=== PATIENT | female | born 1970 | race Caucasian/White ===

== ENCOUNTER 2020-05-02 17:27 | Inpatient (IN) | payer OTHER ==
[~2020-05-02] VITALS: Ht 162.6 cm; Wt 64.0 kg
[~2020-05-02 17:27] MED LIST changes: -ASPIRIN325 MG PO; -ATENOLOL50 MG PO; -DEPAKOTE ER250 MG PO; -DIVALPROEX SOD250 M1 PO; -EUTHYROX150 MCG PO; -GABAPENTIN100 MG PO; -VALSARTAN40 MG PO
[2020-05-02] MEDS ORDERED: SODIUM CHLORIDE 0.9% 1000ML 1,000 ML IV SCH (17:45)
[2020-05-02] MEDS ORDERED: CEFEPIME 1GM/NS 0.9% 50 ML 50 ML IV SCH (17:57)
--- NOTE | 2020-05-02 18:05 | Emergency Department Note ---
History of Present Illnes History of Present Illness Chief Complaint: General Medicine Complaints History of Present Illness This is a 50 year old female with a past medical history significant for recent abdominoplasty and breast surgery in [place] with a chronic wound presenting for concern for wound infection. She is a patient of Dr. Urbina in wound care clinic and was sent to the emergency department for infectious workup. Arrival Mode: Car Communication Equipment Repairer Required: No Onset (how long ago): day(s) Location: abdomen Quality: sharp Radiation: Reports flank Severity: moderate Onset quality: gradual Duration (how long): week(s) (1) Timing of current episode: constant Progression: worsening Chronicity: new Context: Reports recent surgery; Denies recent illness Relieving factors: none Exacerbating factors: none Associated symptoms: Reports denies other symptoms Treatments prior to arrival: none Past Medical/Family History Physician Review I have reviewed the patient's past medical and family history. Any updates have been documented here. Review of Systems Review of Systems Constitutional: Reports no symptoms EENTM: Reports no symptoms Cardiovascular: Reports no symptoms Respiratory: Reports no symptoms Gastrointestinal: Reports as per HPI, Reports abdominal pain Genitourinary: Reports no symptoms Musculoskeletal: Reports no symptoms Integumentary: Reports no symptoms Neurological: Reports no symptoms Psychological: Reports no symptoms Endocrine: Reports no symptoms Hematological/Lymphatic: Reports no symptoms Physical Exam Related Data Allergies: Uncoded Allergies: NSAIDS (Allergy, 04/06/14) Vital signs reviewed: Yes Physical Exam CONSTITUTIONAL Constitutional: Present well-developed, Present well-nourished HENT HENT: Present normocephalic, Present atraumatic, Present oropharynx clear/moist, Present nose normal HENT L/R: Present left ext ear normal, Present right ext ear normal EYES Eyes: Reports PERRL, Reports conjunctivae normal NECK Neck: Present ROM normal PULMONARY Pulmonary: Present effort normal, Present breath sounds normal CARDIOVASCULAR Cardiovascular: Present regular rhythm, Present heart sounds normal, Present capillary refill normal, Present normal rate GASTROINTESTINAL Abdominal: Present soft, Present bowel sounds normal, Present tender (Abd wrapped in bandages) GENITOURINARY Genitourinary: Present exam deferred SKIN Skin: Present warm, Present dry MUSCULOSKELETAL Musculoskeletal: Present ROM normal NEUROLOGICAL Neurological: Present alert, Present oriented x 3, Present no gross motor or sensory deficits PSYCHOLOGICAL Psychological: Present mood/affect normal, Present judgement normal Results Laboratory Lab results reviewed: Yes Imaging Imaging results reviewed: Yes Diagnostics Tests Diagnostic test(s) reviewed: Yes Assessment & Plan Medical Decision Making MDM 50-year-old female with the stated past medical history presents for admission for surgical site infection. Patient was discussed Dr. Capellan was accepted admission. Cefepime and vancomycin started. Re-examined after fluids given Reassessment Reassessment time: 18:04 Reassessment Well appearing, NAD Assessment & Plan Final Impression: (1) Surgical site infection Depart Disposition: ADMITTED Home Meds Reported Medications Dicyclomine Hcl (DICYCLOMINE HCL) 10 Mg Capsule, 10 MG PO PRN 04/09/14 Omeprazole (OMEPRAZOLE) 40 Mg Capsule.dr, 40 MG PO BID 04/09/14 Medications in the ED Sodium Chloride 1,000 ml @ 0 mls/hr Q0M IV ; Start 05/02/20 at 17:45; Stop 05/02/20 at 18:44 PATTI RICHEY MD May 02, 2020 18:05
--- OUTSIDE RECORDS SUMMARY | 2020-05-02 18:11 | XMS REPORT | Continuity of Care Document ---
Author Author [facility] Organization [facility] Address [address] [place] [address] Phone Unavailable Care Team Providers Care Oil Dispatcher Name Role Phone Abdias LR, Johnathon Tolentino PCP TAY HYATT Attphys Unavailable Jeremiah DENNIS, Jesse Ob[place] Attphys Charles MANRIQUEZ Attphys Unavailable Payers Payer Name Policy Type Policy Number Effective Date Expiration Date S [facility]CHOICE [id number] 2015-PresentHMO/ PPO [id number] 2015 00:00:00 Jonathan Lozano Problems Condition Name Condition Details Condition Category Status Onset Date Resolution Date Last Treatment Date Treating Clinician Comments Source Abdominal pain, right upper quadrant Abdominal pain, right u pper quadrant Disease Active 2016-10-05 00:00:00 Jonathan Lozano Gastroesophageal reflux disease Gastroesophageal reflux disease Dis ease Active 2016-03-02 00:00:00 Jonathan Lozano Diverticulosis of large intestine without hemorrhage D iverticulosis of large intestine without hemorrhage Disease Active 2016-03-02 00:00:00 Jonathan Lozano 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 Disease Active 2016-03-02 00:00:[address] Allergies, Adverse Reactions, Alerts Allergy Name Allergy Type Status Severity Reaction(s) Onset Date Inacti ve Date Treating Clinician Comments Source Nsaids (Non-Steroidal Anti-Inflammatory Drug) Propensi ty to adverse reactions to drug Active 2016-03-02 00:00:00 Duane Lozano Family History Family Member Diagnosis Comments Start Date Stop Date Source Natural brother No Known Problems Ho marlys Lozano Natural father COPD [facility] Maternal aunt No Known Problems Duane Lozano Maternal grandfather No Known Problems [facility] Maternal grandmother No Known Problems [facility] Maternal uncle No Known Problems [place] manriquez Christian Natural mother COPD [facility] Natural mother Dementia [facility] Paternal aunt No Known Problems [place] [facility] Paternal grandfather No Known Problems [facility] Paternal grandmother No Known Problems [facility] Paternal uncle No Known Problems Buck declan Christian Natural sister No Known Problems Buckclay manriquez Christian Family member Phillips's esophagus [place] Christian Family member Breast cancer [facility] Family member Celiac disease [facility] Family member Cirrhosis [facility] Family member Colon cancer [facility]ist Family member Colon polyps [facility] ethodist Family member Crohn's disease [place] Family member Cystic fibrosis [place] Family member Eating disorder [place] Family member Esophageal cancer [place] Family member GERD [facility] Family member BAG REPAIRER Cancer [facility] Family member Hemochromatosis [place] Family member Inflammatory bowel disease [facility] Family member Irritable bowel syndrome [facility] Family member Liver cancer [facility] ethodist Family member Liver disease [facility] Family member Pancreatic cancer [place] Family member Pancreatitis [facility] ethodist Family member Rectal cancer [facility] Family member Stomach cancer [facility] Family member Ulcerative colitis [place] manriquez Christian Social History Social Habit Start Date Stop Date Quantity Comments Source Sex Assigned At Buck Lozano Tobacco use and exposure 2016-10-05 00:00:00 2016-10-05 00:00:00 Jerrell matute used Jonathan Lozano Alcohol intake 2016-10-05 00:00:00 2016-10-05 00:00:00 Current non-drinker of alcohol (finding) Jonathan Lozano Smoking Status Start Date Stop Date Source Never smoker Jonathan van Medications Ordered Medication Name Filled Medication Name Start Date Stop Da te Current Medication? Ordering Clinician Indication Dosage Frequency Signature (SIG) Comments Components Source amitriptyline (ELAVIL) 25 MG tablet 2017-07-19 00:00:00 Yes TAKE ONE TABLET BY MOUTH NIGHTLY Jonathan van dicyclomine (BENTYL) 10 MG capsule 2017-03-18 00:00:00 Yes TAKE ONE CAPSULE BY MOUTH 4 TIMES DAILY BEFORE MEALS AND NIGHTLY Jonathan Lozano CREON 12,000-38,000 -60,000 unit capsule,delayed release(DR/ EC) capsule 2017-03-18 00:00:00 Yes TAKE ONE CAPSULE BY MOUTH THREE TIMES DAILY WITH MEALS Jonathan Lozano omeprazole (PriLOSEC) 40 MG capsule 2017-03-18 00:00:00 Yes TAKE ONE CAPSULE BY MOUTH ONCE DAILY Jonathan nieto omeprazole (PriLOSEC) 40 MG capsule 2016-10-05 14:25:17 Yes 40mg QD Take 40 mg by mouth daily. Jonathan Lozano dicyclomine (BENTYL) 10 MG capsule 2016-10-05 14:12:29 Yes 10mg Q.5D Take 10 mg by mouth 2 (two) times a day. Jonathan Lozano LACTOBACILLUS ACIDOPHILUS (PROBIOTIC ORAL) 2016-10-05 14:10:15 Yes Take by mouth. Jonathan Lozano BENEFIBER, GUAR GUM, ORAL 2016-10-05 14:10:15 Yes Take by mouth. Jonathan Lozano ergocalciferol (VITAMIN D2) 50,000 unit capsule 2016-10-05 14:10 :15 Yes [id number] Q7D Take 50,000 Units by mouth once a week. Jonathan Lozano levothyroxine (SYNTHROID, LEVOTHROID) 112 MCG tablet 2 00:00:00 Yes Jonathan van Procedures Procedure Date / Time Performed Performing Clinician Sourc e CT CARDIAC CALCIUM SCORE 2019-08-10 10:07:04 Tay Hyatt Plan of Care Planned Activity Planned Date Details Comments Source Future Scheduled Test 2020-01-20 00:00:00 INFLUENZA VACCINE [code = INFLUENZA VACCINE] Jonathan Lozano Future Scheduled Test 2019 00:00:00 BREAST CANCER SCRE ENING [code = BREAST CANCER SCREENING] Jonathan Lozano Future Scheduled Test 2019 00:00:00 COLONOSCOPY SCREEN ING [code = COLONOSCOPY SCREENING] Jonathan Lozano Future Scheduled Test 2019 00:00:00 SHINGLES VACCINES (#1) [code = SHINGLES VACCINES (#1)] Jonathan Lozano Future Scheduled Test 1990 00:00:00 Screening for rhonda gnant neoplasm of cervix (procedure) [code = 660914232] Jonathan van Encounters Start Date/Time End Date/Time Encounter Type Admission Type Attendi [facility] Care Department Encounter ID Source 2019-08-10 00:00:00 2019-08-10 00:00:00 Outpatient TAY HYATT [facility] [id number] [facility] Results Test Description Test Time Test Comments Results Result Comments Source CT ABDOMEN/PELVIS W 2019-07-14 10:50:00 [facility] [address] [address] Patient Name: ANTOINE ESCOBAR MR #: [id number] : 1970 Age/Sex: 49/F Req #: [id number] Adm Physician: Ordered by: REMEDIOS MANRIQUEZ NP Report #: [id number] Location: CT Room/Bed: Procedure: [id number] CT/CT ABDOMEN/PELVIS W Exam Date: 07/14/19 Exam Time: 0916 REPORT STATUS: Signed CT of the abdomen and pelvis, with contrast, 07/14/2019. History: Abdominal pain, nausea, hematuria. Comparison: None available. Technique: Multidetector CT scanning of the abdomen and pelvis was performed from the level of the lung bases to the inferior pubic rami after intravenous and oral administration of contrast. Coronal and sagittal multiplanar reformations were obtained. RADIATION DOSE: Total DLP: 407 mGy*cm Dose modulation, iterative reconstruction, and/or weight based adjustment of the mA/kV was utilized to reduce the radiation dose to as low as reasonably achievable. Discussion: LUNG BASES: There is bibasilar atelectasis. ABDOMEN: Cholecystectomy clips are present. The liver, biliary tree, spleen, pancreas, adrenal glands, and kidneys are normal. The hepatic vein, portal vein, and splenic vein are patent. The abdominal aorta is within normal limits for size. There are findings of gastric bypass. There is no bowel dilatation. The appendix is visualized and is normal. Multiple diverticuli are present within the distal descending and sigmoid colon without evidence of adjacent inflammation.. There is no evidence of adenopathy or free fluid. PELVIS: The bladder is unremarkable. The uterus and adnexa are absent. Calcified phleboliths are present on the left. There is no evidence of free fluid or adenopathy. BONES AND SOFT TISSUES: Degenerative changes are present throughout the lumbar spine without evidence of lytic or sclerotic lesion. There is grade 1 spinal listhesis of L4 on L5 without evidence of spondylolysis. A 2.1 x 2.5 cm subcutaneous cyst is present in the left anterior abdominal wall. IMPRESSION: 1. Findings of previous gastric bypass. No evidence of obstruction. 2. Colonic diverticula versus wit hout evidence of diverticulitis. 3. Left anterior abdominal wall subcutaneous cyst, benign. 4. Status post cholecystectomy and hysterectomy. Signed by: Garth Vu on 07/14/2019 10:57 AM Dictated By: GARTH VU MD 1057 Transcribed By: MANGO on 07/14/19 1057 COPY TO: REMEDIOS MANRIQUEZ GRAILS WEB APPLICATION DEVELOPER CHEST 2 VIEWS 2019-07-14 08:53:[address] [address] Patient Name: ANTOINE ESCOBAR MR #: [id number] : 1970 Age/Sex: 49/F Req #: [id number] Adm Physician: Ordered by: REMEDIOS MANRIQUEZ NP Report #: [id number] Location: CT Room/Bed: Procedure: [id number] DX/CHEST 2 VIEWS Exam Date: 07/14/19 Exam Time: 0730 REPORT STATUS: Signed Chest, 2 views, 07/14/2019. History: Cough and chest pain. Comparison: None available. Findings: The cardiomediastinal silhouette and pulmonary vasculature are within normal limits. There is no focal consolidation or pleural effusion. Linear opacities are present in the left upper lobe and right lower lobe. There are no acute osseous or soft tissue abnormalities. Impression: Bilateral linear scarring. Signed by: Garth Vu on 07/14/2019 8:54 AM Dictated By: GARTH VU MD 3 Transcribed By: MANGO on 07/14/19853 COPY TO: REMEDIOS MANRIQUEZ NP
--- OUTSIDE RECORDS SUMMARY | 2020-05-02 18:11 | XMS REPORT | Clinical Summary ---
Author Author [facility] Organization [facility] Address Unknown Phone Unavailable Care Team Providers Care Envelope Adjuster Name Role Phone AbdiasRanda Johnathon SOAKING ROOM OPERATOR PCP Allergies Comments Active Allergy Reactions Severity Noted Date Nsaids (Non-Steroidal 03/02/2016 Anti-Inflammatory Drug) Medications End Date Status Medication Sig Dispensed Refills Start Date Active levothyroxine (SYNTHROID, 0 LEVOTHROID) 112 MCG 6 tablet Active LACTOBACILLUS ACIDOPHILUS Take by 0 (PROBIOTIC ORAL) mouth. Active BENEFIBER, GUAR GUM, ORAL Take by 0 mouth. Active ergocalciferol (VITAMIN Take 50,000 0 D2) 50,000 unit capsule Units by mouth once a week. Active dicyclomine (BENTYL) 10 Take 10 mg by 0 MG capsule mouth 2 (two) times a day. Active omeprazole (PriLOSEC) 40 Take 40 mg by 0 MG capsule mouth daily. Active dicyclomine (BENTYL) 10 TAKE ONE 120 capsule 6 MG capsule CAPSULE BY 7 MOUTH 4 TIMES DAILY BEFORE MEALS AND NIGHTLY Active CREON 12,000-38,000 TAKE ONE 90 capsule 6 -60,000 unit CAPSULE BY 7 capsule,delayed MOUTH THREE release(DR/EC) capsule TIMES DAILY WITH MEALS Active omeprazole (PriLOSEC) 40 TAKE ONE 30 capsule 6 0 MG capsule CAPSULE BY 7 MOUTH ONCE DAILY Active amitriptyline (ELAVIL) 25 TAKE ONE 30 tablet 6 MG tablet TABLET BY 8 MOUTH NIGHTLY Active Problems Problem Noted Date Abdominal pain, right upper quadrant 10/05/2016 Gastroesophageal reflux disease 03/02/2016 Diverticulosis of large intestine without hemorrhage 03/02/2016 Alcoholism in remission 03/02/2016 Encounters Care Team Description Date Type Specialty Tay Matias MD Encounter for screening, unspecified (Pr imary Dx) 08/09/2019 Transcribe Access Orders Sabas Daniels MD Encounter for screening, unspecified (Pr imary Dx) 08/09/2019 Transcribe Access Orders after 05/02/2019 Surgical History Surgery Date Site/Laterality Comments BLADDER SUSPENSION 06/21/2014 - 06/20/2015 THYROID SURGERY 06/21/2013 - 06/20/2014 OTHER SURGICAL HISTORY gastric sleeve CHOLECYSTECTOMY HYSTERECTOMY TONSILLECTOMY BREAST CYST EXCISION BARIATRIC SURGERY 06/21/2009 - gastric sleeve 06/20/2010 COLONOSCOPY 04/21/2004 Colonic mucosa with no diagnostic alteration (r) - colon, Sigmoid colon: hyper plastic mucosal polyp 05/20/2004 COLONOSCOPY 2014 :Diverticulosis in the ascending colon :internal hemorrhoids COLONOSCOPY 09/23/2015 : Diverticulosis in sigmoid and descending colon., internal hemorrhoids. Random bx: Benign colonic mucosa, no pathologic alteration UPPER GASTROINTESTINAL 06/21/2003 - Nl duodenal muc mike, antral mucosa with foveolar ENDOSCOPY 06/20/2004 hyperplasia, nondia gnostic change. No H. pylori UPPER GASTROINTESTINAL 04/21/2005 Erosive gastrit is bx: reactive gastritis, no H. ENDOSCOPY - pylori. 05/20/2005 UPPER GASTROINTESTINAL 05/03/2014 Duodenum chroni c duodenitis,mild and ENDOSCOPY nonspecific:BRunners gland hyperplasia:Stomach antrum bx:reactive/chemical gastropathy :No Hpylori:stomach gastric polyp Bx Fundic gland polyp UPPER GASTROINTESTINAL 09/23/2015 : Small HH, gas tritis bx: mld chronic inactive ENDOSCOPY gastritis, mld reactive thad nges, HP Neg., normal examined duodenum bx: mld peptic duoden itis FOOT SURGERY Bilateral Club foot sx Medical History Medical History Date Comments Alcohol abuse, unspecified Abdominal pain, right upper quadrant Other nonspecific abnormal serum enzyme levels Acquired diverticulosis of colon Family History Medical History Relation Name Comments No Known Problems Brother COPD Father No Known Problems Maternal Aunt No Known Problems Maternal Grandfather No Known Problems Maternal Grandmother No Known Problems Maternal Uncle COPD Mother Dementia Mother No Known Problems Paternal Aunt No Known Problems Paternal Grandfather No Known Problems Paternal Grandmother No Known Problems Paternal Uncle No Known Problems Sister Phillips's esophagus Neg Hx Breast cancer Neg Hx Celiac disease Neg Hx Cirrhosis Neg Hx Colon cancer Neg Hx Colon polyps Neg Hx Crohn's disease Neg Hx Cystic fibrosis Neg Hx Eating disorder Neg Hx Esophageal cancer Neg Hx GERD Neg Hx CONSULTING MARINE ENGINEER Cancer Neg Hx Hemochromatosis Neg Hx Inflammatory bowel Neg Hx disease Irritable bowel syndrome Neg Hx Liver cancer Neg Hx Liver disease Neg Hx Pancreatic cancer Neg Hx Pancreatitis Neg Hx Rectal cancer Neg Hx Stomach cancer Neg Hx Ulcerative colitis Neg Hx Relation Name Status Comments Brother Father Maternal Aunt Maternal Grandfather Maternal Grandmother Maternal Uncle Mother Alive Paternal Aunt Paternal Grandfather Paternal Grandmother Paternal Uncle Sister Social History Date Tobacco Use Types Packs/Day Years Used Never Smoker Smokeless Tobacco: Never Used Drinks/Week oz/Week Comments Alcohol Use No Sex Assigned at Date Recorded Not on file Last Filed Vital Signs Not on file Plan of Treatment Health Maintenance Due Date Last Done Comments CERVICAL CANCER SCREENING 1990 BREAST CANCER SCREENING 2019 COLONOSCOPY SCREENING 2019 SHINGLES VACCINES (#1) 2019 INFLUENZA VACCINE 01/20/2020 Procedures Comments Procedure Name Priority Date/Time Associated Diag nosis CT CARDIAC CALCIUM SCORE Routine 08/10/2019 Encou nter for screening, 10:07 AM [facility] unspecified after 05/02/2019 Results * Ct cardiac calcium score (08/10/2019 10:07 AM [facility]) Specimen Narrative Performed At EXAMINATION: CT CARDIAC CALCIUM SCORE RADIANT CLINICAL HISTORY: Z13.9 Encounter for s creening unspecified, ecounter screening unspecified COMPARISON: None. TECHNIQUE: CT imaging was performed wit h iterative reconstruction technique and/or automated exposure control to re duce radiation dose. FINDINGS: Agatston total coronary artery calcium score: 0 Age Corrected Percentile: 0th Left main (LM): 0 Left anterior descending (LAD): 0 Left circumflex (LCX): 0 Right coronary artery (RCA): 0 Posterior descending artery (PDA): 0 Noncoronary findings: Visualized portio ns of the lungs, pleura, and pericardium are unremarkable. Agatston calcium score (total) extent o f atherosclerosis 0-normal 8-17-ahjiizf atherosclerosis 10-100-mild extent of atherosclerosis [id number] extent of atherosclero sis Greater than 400-severe extent of ather osclerosis Recommendation Normal coronary artery calcium score. C ontinue routine preventative measures. IMPRESSION: No coronary artery calcifications. [id number] Procedure Note Interface, Radiology Results Incoming - 08/10/2019 10:38 AM [facility]ANCH[facility] EXAMINATION: CT CARDIAC CALCIUM SCORE CLINICAL HISTORY: Z13.9 Encounter for screening unspecified, ecounter screening unspecified COMPARISON: None. TECHNIQUE: CT imaging was performed with iterative reconstruction technique and/or automated exposure control to reduce radiation dose. FINDINGS: Agatston total coronary artery calcium score: 0 Age Corrected Percentile: 0th Left main (LM): 0 Left anterior descending (LAD): 0 Left circumflex (LCX): 0 Right coronary artery (RCA): 0 Posterior descending artery (PDA): 0 Noncoronary findings: Visualized portions of the lungs, pleura, and pericardium are unremarkable. Agatston calcium score (total) extent of atherosclerosis 0-normal 7-35-dfyznzw atherosclerosis 10-100-mild extent of atherosclerosis [id number] extent of atheroscleros is Greater than 400-severe extent of atherosclerosis Recommendation Normal coronary artery calcium score. Continue routine preventative measures. IMPRESSION: No coronary artery calcifications. [id number] Performing Organization Address City/State/ZIP Code P aniya Number [facility] [address] [place] [address] after 05/02/2019 Insurance Type Payer Benefit Subscriber ID Effective Phone Address Plan / Dates Group HMO/PPO [facility] [id number] 2015-P THCARE resent CHOICE/CHO ICE + Advance Directives For more information, please contact: [phone] Patient Personal Assistant Explanation Type Date Recorded Advance Directives, 09/23/2015 10:04 AM Living Will and Medical Power of Jaw Skinner Advance Directives, 09/24/2015 1:22 PM Living Will and Medical Power of Jaw Skinner Advance Directives, 03/11/2016 8:20 AM Living Will and Medical Power of Jaw Skinner Advance Directives, 03/13/2016 9:39 AM Living Will and Medical Power of Jaw Skinner Advance Directives, 05/06/2016 6:43 AM Living Will and Medical Power of Jaw Skinner Advance Directives, 07/08/2016 9:54 AM Living Will and Medical Power of Jaw Skinner Advance Directives, 07/10/2016 11:47 AM Living Will and Medical Power of Jaw Skinner
[2020-05-02 18:17] LABS: BASOPHILS # (AUTO) 0.1 (0.0-0.1); BASOPHILS % 0.9 % (0.0-1.0); EOSINOPHILS # (AUTO) 0.2 (0.0-0.4); EOSINOPHILS % 2.8 % (0.0-6.0); HEMATOCRIT 34.4 % (34.2-44.1); HEMOGLOBIN 10.9 g/dL (12.0-16.0); LYMPHOCYTES # (AUTO) 1.7 (1.0-3.2); LYMPHOCYTES % 32.8 % (18.0-39.1); MEAN CORPUSCULAR HEMOGLOBIN 28.8 pg (28-32); MEAN CORPUSCULAR HGB CONC 31.7 g/dL (31-35); MONOCYTES # (AUTO) 0.5 (0.2-0.8); MONOCYTES % 8.7 % (4.4-11.3); NEUTROPHILS # (AUTO) 2.9 (2.1-6.9); NEUTROPHILS % 54.6 % (38.7-80.0); PLATELET COUNT 343 x10e3/uL (140-360); RED BLOOD COUNT 3.78 x10e6/uL (3.6-5.1); RED CELL DISTRIBUTION WIDTH 13.7 % (11.7-14.4)
--- OUTSIDE RECORDS SUMMARY | 2020-05-02 18:18 | XMS REPORT | Continuity of Care Document ---
Author Author [facility] Organization [facility] Address [address] [place] [address] Phone Unavailable Care Team Providers Care Manager Eligibility Name Role Phone Abdias LR, Johnathon Tolentino PCP TAY HYATT Attphys Unavailable Jeremiah DENNIS, Jesse Obregon Attphys Charles MANRIQUEZ Attphys Unavailable Payers Payer Name Policy Type Policy Number Effective Date Expiration Date S [facility]/CHOICE [id number] 2015-PresentHMO/ PPO [id number] 2015 00:00:00 Jonathan Lozano Problems Condition Name [...] Problems Ho marlys Lozano Natural father COPD [facility]odist Maternal aunt No Known Problems Duane Lozano Maternal grandfather No Known Problems [facility] Maternal grandmother No Known Problems [facility] Maternal uncle No Known Problems [place] [facility] Natural mother COPD [facility] Natural mother Dementia [facility] Paternal aunt No Known Problems [place] [facility] Paternal grandfather No Known Problems [facility] Paternal grandmother No Known Problems [facility] Paternal uncle No Known Problems [facility] Natural sister No Known Problems [place] [facility] Family member Phillips's esophagus [facility] [place] [facility] Family member Breast cancer [facility] Family member Celiac disease [facility] Family member Cirrhosis [facility] Family member Colon cancer [facility] member Colon polyps [facility] Family member Crohn's disease [place] [facility] Family member Cystic fibrosis [place] [facility] Family member Eating disorder [place] [facility] Family member Esophageal cancer [place] [facility] Family member GERD [facility] Family member DIRECTOR OF OUTREACH Cancer [facility] Family member Hemochromatosis [place] [facility] Family member Inflammatory bowel disease [facility] Family member Irritable bowel syndrome [facility] Family member Liver cancer [facility] Family member Liver disease [facility] Family member Pancreatic cancer [place] [facility] Family member Pancreatitis [facility] Family member Rectal cancer [facility] Family member Stomach cancer [facility] Family member Ulcerative colitis [place] [facility] Social History Social Habit Start Date Stop [...] 50,000 unit capsule 2016-10-05 14:10 :15 Yes [id number] Take 50,000 Units by mouth once [...] gnant neoplasm of cervix (procedure) [code = 592499912] Jonathan van Encounters Start Date/Time End Date/Time Encounter Type Admission Type [facility] Care Department Encounter ID Source 2019-08-10 00:00:00 2019-08-10 00:00:00 Outpatient TAY HYATT [facility] [id number] [facility] Results Test Description Test Time Test Comments Results Result Comments Source CT ABDOMEN/PELVIS W 2019-07-14 10:50:00 [facility] [address] [address] Patient Name: ANTOINE ESCOBAR MR #: [id number] : 1970 Age/Sex: 49/F Req #: [id number] Adm Physician: Ordered by: REMEDIOS MANRIQUEZ NP Report #: [id number] Location: CT Room/Bed: Procedure: [id number] CT/CT ABDOMEN/PELVIS W Exam Date: 07/14/19 Exam [...] on 07/14/19 1057 COPY TO: REMEDIOS MANRIQUEZ [employer] CHEST 2 VIEWS 2019-07-14 08:53:00 [address] [address] Patient Name: ANTOINE ESCOBAR MR #: [id number] : 1970 Age/Sex: 49/F Req #: [id number] Adm Physician: Ordered by: REMEDIOS MANRIQUEZ NP Report #: [id number] Location: CT Room/Bed: Procedure: [id number] DX/CHEST 2 VIEWS Exam Date: 07/14/19 Exam [...]
[2020-05-02] MEDS ORDERED: VANCOMYCIN 750MG/NS 150ML IVPB 150 ML IV SCH (18:30)
[2020-05-02 18:33] LABS: ALANINE AMINOTRANSFERASE 11 IU/L (0-55); ALBUMIN 3.6 g/dL (3.5-5.0); ALBUMIN/GLOBULIN RATIO 1.3 (0.8-2.0); ALKALINE PHOSPHATASE 62 IU/L (40-150); ANION GAP 14.4 mmol/L (8-16); BLOOD UREA NITROGEN 14 mg/dL (7-26); BUN/CREATININE RATIO 16 (6-25); CALCIUM 8.5 mg/dL (8.4-10.2); CARBON DIOXIDE 21 mmol/L (22-29); CHLORIDE 107 mmol/L (98-107); CREATININE, SERUM 0.87 mg/dL (0.57-1.11); EST GLOMERULAR FILTRATION RATE > 60 ML/MIN (60-); GLUCOSE 120 mg/dL (74-118); POTASSIUM 4.4 mmol/L (3.5-5.1); SODIUM 138 mmol/L (136-145)
[2020-05-02] MEDS ORDERED: SODIUM CHLORIDE 0.9% 50ML 50 ML ONE (18:54)
[2020-05-02] MEDS ORDERED: IOPAMIDOL 370 MG/ML 200 ML INFUS..BTL INJ ONE (18:54)
[2020-05-02] MEDS ORDERED: CEFEPIME 2 GM/NS 0.9% 100 ML 100 ML IV SCH (19:00)
[2020-05-02] MEDS ORDERED: VANCOMYCIN 1GM/NS 250 ML 250 ML IV SCH (19:00)
--- NOTE | 2020-05-02 19:15 | NUR ---
Nursing report called to [facility].
--- NOTE | 2020-05-02 19:59 | Diagnostic Imaging Report ---
EXAM: CT Abdomen and Pelvis WITH contrast INDICATION: Abdominal pain. Concern for infection following abdominoplasty. COMPARISON: 07/14/2019. TECHNIQUE: Abdomen and pelvis were scanned utilizing a multidetector helical scanner from the lung base to the pubic symphysis after administration of IV contrast. Coronal and sagittal reformations were obtained. Routine protocol was performed. Scan was performed when during portal venous phase. IV CONTRAST: 100 cc Isovue 370. ORAL CONTRAST: Water RADIATION DOSE: Total DLP: 426.46 mGy*cm Estimated effective dose: (DLP x 0.015 x size factor) mSv COMPLICATIONS: None FINDINGS: LINES and TUBES: None. LOWER THORAX: Bibasilar subsegmental atelectasis. 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 No focal hepatic lesions. No biliary ductal dilation. GALLBLADDER: There are cholecystectomy clips. SPLEEN: No splenomegaly. PANCREAS: No focal masses or ductal dilatation. ADRENALS: No adrenal nodules KIDNEYS/URETERS: Kidneys enhance symmetrically. No hydronephrosis. No cystic or solid mass lesions. No stones. GI TRACT: No abnormal distention, wall thickening, or evidence of bowel obstruction. Postoperative changes involving the stomach and proximal small bowel suggestive of bariatric surgery, likely gastric right breast with Cruz-en-Y again observed, not significantly changed. Appendix is normal. PELVIC ORGANS/BLADDER: The uterus is absent. LYMPH NODES: There are mildly enlarged bilateral inguinal lymph nodes likely reactive. VESSELS: There is mild atherosclerotic disease in the aorta and major arterial branches. PERITONEUM / RETROPERITONEUM: No free air or fluid. BONES: Grade 1 anterolisthesis of L4 in relation to L5, unchanged. SOFT TISSUES: Apparent skin ulceration and small volume subcutaneous gas in the lower right breast/right upper quadrant abdominal wall as seen on axial images 27 through 29 series 2. No drainable fluid collection. There is also postoperative changes involving the anterior abdominal wall with subcutaneous edema, morphologic changes to the anterior abdominal wall musculature, with repositioning rectus abdominous muscles which are edematous and protrude into the anterior abdominal cavity. There is diffuse subcutaneous fat stranding, with skin ulceration in the lower anterior abdominal wall as seen on image 83 series 2. There is fluid attenuation throughout the anterolateral abdominal wall (deep subcutaneous just superficial to fascia), left greater than The right measuring up to 1.1 cm in AP dimension on image 65. Previously described left upper abdomen fluid collections no longer visualized. IMPRESSION: 1. Postoperative changes involving the inferior bright breast and anterior abdominal wall may reflect cellulitis. There is subcutaneous fluid in the deep subcutaneous throughout the anterior abdominal wall, particularly on the left, however, no loculated fluid collections. Signed by: Dr. Andrae Mccracken M.D. on 05/02/2020 7:56 PM
[2020-05-02 20:24] VITALS: BP 94/58
--- NOTE | 2020-05-02 20:24 | NUR ---
Received patient from ER via wheelchair in stable condition, no s/s of distress at this time. Patient alert and oriented, educated on hospital policy and plan of care. Dressings noted to bilateral breasts and right lower abdomen, CDI. Bed locked and in lowest position, side rails upx3, alarm on, call light placed within reach. Patient instructed to call for assistance if needed, verbalized understanding. All safety measures in place.
[2020-05-02 20:45] LABS: BILIRUBIN,URINE NEGATIVE (NEGATIVE); CLARITY,URINE CLEAR (CLEAR); COLOR,URINE YELLOW (YELLOW); KETONES,URINE TRACE (NEGATIVE); LEUKOCYTE ESTERASE ,URINE NEGATIVE (NEGATIVE); NITRITE,URINE NEGATIVE (NEGATIVE); PROTEIN,URINE DIPSTICK NEGATIVE (NEGATIVE); URINE UROBILINOGEN 0.2 mg/dL (0.2 - 1)
[2020-05-02] MEDS: MORPHINE SULFATE INJ 4 MG/ML INJ 1ML IV PRN (20:50)
[2020-05-02] MEDS: SODIUM CHLORIDE 0.9% 1000ML 1,000 ML IV SCH (20:52)
[2020-05-02] MEDS: VANCOMYCIN 1GM/NS 250 ML 250 ML IV SCH (20:52)
[2020-05-02 20:56] LABS: BACTERIA,URINE RARE /HPF; EPITHELIAL CELLS,URINE FEW /LPF; RBC,URINE 0-5 /HPF (0-5)
[2020-05-02] MEDS ORDERED: EUTHYROX150 MCG PO (21:08)
[2020-05-02] MEDS ORDERED: VALSARTAN40 MG PO (21:08)
[2020-05-02] MEDS ORDERED: ATENOLOL50 MG PO (21:08)
[2020-05-02] MEDS ORDERED: DIVALPROEX SOD250 M1 PO (21:08)
[2020-05-02] MEDS ORDERED: GABAPENTIN100 MG PO (21:08)
[2020-05-02] MEDS ORDERED: ASPIRIN325 MG PO (21:08)
[2020-05-02] MEDS ORDERED: DEPAKOTE ER250 MG PO (21:09)
[2020-05-02 21:10] VITALS: BP 94/58
[2020-05-02] MEDS ORDERED: INFLUENZA VIRUS VAC SPLIT INJ 0.5 ML SYR IM SCH (21:11)
--- NOTE | 2020-05-02 21:17 | NUR ---
Consult called to Dr. Vidal's office.
[2020-05-02 21:24] VITALS: BP 94/58
[2020-05-02] MEDS ORDERED: DIVALPROEX SODIUM 250 MG TAB...DR PO SCH (22:00)
--- NOTE | 2020-05-02 22:04 | Consultation ---
DATE OF CONSULTATION: 05/02/2020 REQUESTING PHYSICIAN: Beckie Capellan MD Thank you for this consultation. HISTORY OF PRESENT ILLNESS: This is a 50-year-old female who was [facility], sent by her PCP. The patient had breast augmentation and abdominoplasty done in [place] on April 11, 2020, stayed in the hospital for about 3-4 days, followed by stay at a hotel. She received Bactrim and clindamycin. Noted further abdominal and breast wounds. The patient noted some dehiscence of the abdominal wound for the past 2 weeks and also some redness along the surgical sites and on the breast. Came to the [facility], noted that there was evidence of infection of the wounds and was sent over to the emergency room to be admitted. Wound cultures were performed. REVIEW OF SYSTEMS: HEENT: Denies any headaches, visual complaints, sinus congestion, earache, throat pain, neck pain. RESPIRATORY: No cough, shortness of breath. CARDIOVASCULAR: No chest pain or palpitations. GI: No nausea, vomiting, or diarrhea. : No urinary symptoms. PAST MEDICAL HISTORY: Essential hypertension. PAST SURGICAL HISTORY: As above. In addition, has had gastric bypass, cholecystectomy, hysterectomy, thyroidectomy, breast lift and abdominoplasty, which were recent surgeries. MEDICATIONS: Chronic medications are reviewed. FAMILY HISTORY: Noncontributory. SOCIAL HISTORY: No active alcohol, tobacco, or drug use. PHYSICAL EXAMINATION: VITAL SIGNS: Temperature 98.1, pulse 84, respiratory rate is 17, blood pressure 111/73. HEENT: Head is normocephalic, atraumatic. Extraocular movements are not assessed. NECK: Supple. BREAST: Evaluation of the breasts reveals surgical wounds with some dehiscence in the right mid breast. Also on the left breast, there is dehiscence in the lower part of the breast wound. On the abdominal wound, there is dehiscence on the right lateral aspect with some drainage. LABORATORY DATA: Revealed WBC count of 5.3, hemoglobin 10.9, platelets 343. BUN 14, creatinine 0.7. LFTs are normal. ASSESSMENT: This is a 50-year-old female who has an abdominoplasty and recent breast lift, which have now become infected with wound dehiscence, high risk for staphylococcal infection as well as gram-negative infection. RECOMMENDATIONS: Wound care orders have been submitted. Antibiotics will be vancomycin and Maxipime. Cultures have been obtained. We will adjust antibiotics accordingly depending on clinical course. We will determine course and duration of antibiotic treatment. Thank you, Dr. Capellan, for this consultation. We will follow the patient along with you. Tomer Franklin MD SR/MODL /[id number] cc: Beckie Capellan MD
[2020-05-03] VITALS (8 sets, daily range): BP systolic 99–115; BP diastolic 57–70
[2020-05-03] MEDS: MORPHINE SULFATE INJ 4 MG/ML INJ 1ML IV PRN ×5 (03:39→20:35)
[2020-05-03] MEDS: ONDANSETRON HCL INJ 2MG/ML 2ML 2 MG/ML VIAL IV PRN ×5 (03:44→20:35)
[2020-05-03 05:19] LABS: BASOPHILS % 0.6 % (0.0-1.0); EOSINOPHILS % 1.2 % (0.0-6.0); HEMATOCRIT 29.5 % (34.2-44.1); HEMOGLOBIN 9.3 g/dL (12.0-16.0); MEAN CORPUSCULAR HGB CONC 31.5 g/dL (31-35); MEAN CORPUSCULAR VOLUME 91.9 fL (81-99); MONOCYTES # (AUTO) 0.3 (0.2-0.8); NEUTROPHILS # (AUTO) 2.1 (2.1-6.9); NEUTROPHILS % 60.9 % (38.7-80.0); PLATELET COUNT 243 x10e3/uL (140-360); RED BLOOD COUNT 3.21 x10e6/uL (3.6-5.1); RED CELL DISTRIBUTION WIDTH 13.7 % (11.7-14.4)
[2020-05-03 05:41] LABS: ANION GAP 11.2 mmol/L (8-16); BLOOD UREA NITROGEN 8 mg/dL (7-26); BUN/CREATININE RATIO 13 (6-25); CALCIUM 7.7 mg/dL (8.4-10.2); CARBON DIOXIDE 23 mmol/L (22-29); CHLORIDE 108 mmol/L (98-107); CREATININE, SERUM 0.63 mg/dL (0.57-1.11); EST GLOMERULAR FILTRATION RATE > 60 ML/MIN (60-); GLUCOSE 91 mg/dL (74-118); POTASSIUM 4.2 mmol/L (3.5-5.1); SODIUM 138 mmol/L (136-145)
[2020-05-03] MEDS: SODIUM CHLORIDE 0.9% 1000ML 1,000 ML IV SCH ×4 (05:58→20:44)
[2020-05-03] MEDS: CEFEPIME 2 GM/NS 0.9% 100 ML 100 ML IV SCH ×2 (05:58→18:17)
[2020-05-03] MEDS ORDERED: LEVOTHYROXINE SODIUM 100 MCG TAB PO SCH (06:00)
--- NOTE | 2020-05-03 06:33 | NUR ---
Spoke to Dr. Vidal regarding consult. stated he will come by and evaluate patient today.
[2020-05-03] MEDS: VANCOMYCIN 1GM/NS 250 ML 250 ML IV SCH ×2 (07:54→20:43)
[2020-05-03] MEDS: ATENOLOL 50 MG TAB PO SCH ×2 (08:56→16:23)
[2020-05-03] MEDS ORDERED: VALSARTAN 80 MG TAB PO SCH (09:00)
[2020-05-03] MEDS: DIVALPROEX SODIUM 250 MG TAB...DR PO SCH (09:07)
--- NOTE | 2020-05-03 10:06 | Consultation ---
DATE OF CONSULTATION: In-Hospital Consultation The consultation is requested by Dr. Capellan. Consultation requested to Brendan Vidal MD, Plastic Surgery. CHIEF COMPLAINT: Postoperative surgical dehiscence/infection. HISTORY OF PRESENT ILLNESS: The patient is a 50-year-old female, who on April 11 was in [place], undergoing cosmetic plastic surgical procedures that included bilateral mastopexy and abdominoplasty. The patient returned to the [facility] and is unclear, but when her symptoms began, but she noticed some wound breakdown underneath both breasts and around the midline of the abdominoplasty incision. This progressed and she went to her primary care physician in [place], who recommended that the patient be seen at the [facility]. The patient was seen at the [facility] on May [address] Bentley, who recommended that the patient go to the ER and be admitted. The patient was admitted last night and now consultation regarding evaluation and optimal management of the patient's postsurgical wounds was requested. PAST MEDICAL HISTORY: As noted above. PAST SURGICAL HISTORY: As noted above. PHYSICAL EXAMINATION: VITAL SIGNS: The patient is afebrile. Vital signs are stable. BREASTS: On pertinent physical exam, the patient's breasts exhibit classic inverted T mastopexy-type incisions consistent with them being approximately 3 weeks in age. There is full-thickness dehiscence and soft tissue breakdown at the confluence of the vertical and horizontal inframammary areas of the incision. The areas of breakdown measure approximately 3 cm in diameter. There is no significant devitalized tissue. There is no purulent exudate and sutures within all the incisions were noted. There does not appear to be any widespread infection or cellulitis of the area. ABDOMEN: In the central aspect of the abdominoplasty incision, there is a 7 to 8 cm area of full-thickness soft tissue loss with exposed subcutaneous tissue. There is no purulence. There is no significant devitalized tissue noted. IMPRESSION: Post surgical wound dehiscence and breakdown. PLAN: These wounds do not appear to be significantly infected nor are they severely compromised with large load of devitalized tissue. I recommend daily cleansing with soap and water, topical Bactroban ointment, and a sterile dressing. The patient does not require any surgical intervention at this time, so please re-consult me as necessary. Thank you for this consult. MD LAI Priest/GARY /[id number]
--- NOTE | 2020-05-03 12:06 | Progress Note ---
DATE: 05/03/2020 SUBJECTIVE: The patient was seen and examined in the room. Still complains of pain lower abdominal area where the patient has surgical wound. OBJECTIVE: VITAL SIGNS: Afebrile. Vital signs are stable. HEENT: Normocephalic, atraumatic. LUNGS: Clear to auscultation. HEART: Sounds S1, S2. No murmur. No gallop. ABDOMEN: Soft. Surgical scar is noted in the lower abdomen with dehiscence of the abdominal wound especially on the right side. There is surrounding erythema surgical scars with induration, . LABORATORY DATA: Labs are reviewed. Cultures are pending. Blood cultures are pending. ASSESSMENT: Status post abdominoplasty postoperative infections. RECOMMENDATIONS: 1. Followup cultures. 2. Antibiotic treatment with vancomycin and Maxipime is ongoing, wound care through the wound care team. 3. We will continue to follow. Tomer Franklin MD SR/MODL /[id number]
[2020-05-03] MEDS: MUPIROCIN 2% OINT 22 GM TUBE TOP SCH (13:00)
--- NOTE | 2020-05-03 14:13 | NUR ---
shake splitter visited with the pt and pt expressed peace through words, she says she feels better and doing well, shake splitter offered prayer and blessings chaplain Kojo
--- NOTE | 2020-05-03 18:07 | History and Physical ---
PCP: Dr. Randa Sanford. WOUND CARE: Dr. Marichuy Bentley. CHIEF COMPLAINT: Infection post abdominoplasty and breast augmentation. HISTORY OF PRESENT ILLNESS: This is a 50-year-old female with past medical history of hypertension, seizure disorders, and hypothyroidism, presented to the ER with complaint of abdominal and breast augmentation infection, status post surgery. She reports went to [place] to have abdominoplasty and breast augmentation on April 11, 2020. She stayed there for a few days and came back. Five days ago, she noted that she was having discharge around her belly. So, she went to her PCP who started her on some Bactrim and clindamycin. She reported the wound was not improving, so was sent to [facility] for further evaluation. At the [facility]ound Center, cultures were obtained and was sent to the ER for further evaluation. She denies any fever, chills, nausea, vomiting, or pain. She reports she had indurated area around the right pelvis area and under her right breast. Dressing intact. PAST MEDICAL HISTORY: 1. Hypertension. 2. Seizure disorder. 3. Thyroid disorder. PAST SURGICAL HISTORY: 1. Gastric bypass in 2010. 2. Thyroidectomy. 3. Cholecystectomy. 4. Hysterectomy. 5. Bladder lift and hernia repair. 6. Abdominoplasty and breast augmentation. FAMILY MEDICAL HISTORY: She reports sister has diabetes and father has COPD and skin cancer and seizure also runs in the family. SOCIAL HISTORY: She denies any tobacco, alcohol, or illicit drug use. . ALLERGIES: NSAIDS. REVIEW OF SYSTEMS: Twelve systems reviewed and negative, except as reported in HPI. PHYSICAL EXAMINATION: VITAL SIGNS: Temperature 97.8, pulse is 81, respirations 20, blood pressure 101/66, pulse ox is 99% on room air. GENERAL: No acute distress. HEENT: Normocephalic and atraumatic. NECK: Supple. LUNGS: Clear to auscultation. CARDIOVASCULAR: Regular rate and rhythm. GI: Soft and nontender. NEUROLOGIC: Alert, awake, and oriented x3. MUSCULOSKELETAL: Moves all extremities. SKIN: Multiple wound infection around the pelvis and under bilateral breasts and belly button. Dressing intact. PSYCH: Calm. LABORATORY DATA: WBC 3.42, hemoglobin 9.3, hematocrit 29.5, and platelets 243. Sodium 138, potassium 4.2, CO2 of 23, BUN is 8, creatinine is 0.63, estimated GFR is greater than 60. Lactic acid 0.8, calcium 7.7, TSH is 0.064. UA is negative. COVID PCR is pending. IMAGING: CT abdomen and pelvis shows postoperative changes involving the inferior bright right breast and anterior abdominal wall, may reflect cellulitis. There is subcutaneous fluid in the deep subcutaneous throughout the anterior abdominal wall, particularly only on the left; however, no loculated fluid collection. IMPRESSION: 1. Postop abdominoplasty and breast augmentation infection. Blood and urine cultures were sent and started on cefepime and vancomycin per ID. Pain management as needed and wound care per surgical team, Dr. Vidal. 2. Hypertension. Currently, blood pressure is low. We will hold Diovan and continue atenolol if systolic blood pressure is greater than 120. 3. Seizure disorders. We will continue on Depakote and gabapentin. 4. Thyroid disorder. TSH level is 0.064. We will decrease Synthroid to 125 mcg daily. 5. Deep vein thrombosis prophylaxis, SCDs for now. Dictated by JESS Keyes Beckie Capellan MD MY/MODL /[id number]
[2020-05-03] MEDS ORDERED: DIPHENHYDRAMINE HCL 25 MG CAP PO PRN (18:30)
--- NOTE | 2020-05-03 19:00 | NUR ---
Resumed care of patient. Patient awake and resting in bed, no s/s of distress at this time. Bed locked and in lowest position, side rails upx2, alarm on, call light placed within reach. Patient instructed to call for assistance if needed, verbalized understanding. All safety measures in place.
[2020-05-03] MEDS: DIVALPROEX SODIUM 125 MG TABDR...ER PO SCH (20:43)
[2020-05-03] MEDS: GABAPENTIN 100 MG CAP PO SCH (20:44)
[2020-05-03] MEDS: PANTOPRAZOLE SOD 40 MG TABEC PO SCH (20:44)
[2020-05-04] VITALS (7 sets, daily range): BP systolic 91–127; BP diastolic 61–86
[2020-05-04] MEDS: CEFEPIME 2 GM/NS 0.9% 100 ML 100 ML IV SCH ×2 (05:30→18:41)
[2020-05-04] MEDS: LEVOTHYROXINE SODIUM 125 MCG TAB PO SCH (05:30)
[2020-05-04] MEDS: ONDANSETRON HCL INJ 2MG/ML 2ML 2 MG/ML VIAL IV PRN ×5 (05:45→22:39)
[2020-05-04] MEDS: MORPHINE SULFATE INJ 4 MG/ML INJ 1ML IV PRN ×5 (05:45→22:47)
[2020-05-04] MEDS ORDERED: LEVOTHYROXINE SODIUM 100 MCG TAB PO SCH (06:00)
--- NOTE | 2020-05-04 07:00 | NUR ---
ASSUMED CARE. PATIENT AAOX3. ACYANOTIC. RESTING IN BED. NO DISTRESS NOTED. CALL LIGHT IN REACH. SIDE RAILS UP X2. BED LOW AND LOCKED.
[2020-05-04] MEDS: ASPIRIN 325 MG TAB PO SCH (08:32)
[2020-05-04] MEDS: DIVALPROEX SODIUM 250 MG TAB...DR PO SCH (08:32)
[2020-05-04] MEDS: ATENOLOL 50 MG TAB PO SCH ×2 (08:32→16:25)
[2020-05-04] MEDS: MUPIROCIN 2% OINT 22 GM TUBE TOP SCH (09:00)
[2020-05-04] MEDS: VANCOMYCIN 1GM/NS 250 ML 250 ML IV SCH ×2 (09:00→20:30)
[2020-05-04] MEDS: SODIUM CHLORIDE 0.9% 1000ML 1,000 ML IV SCH ×2 (10:00→16:00)
--- NOTE | 2020-05-04 19:33 | Progress Note ---
DATE: 05/04/2020 CONSULTANTS: 1. Dr. Franklin, ID. 2. Dr. Vidal, Surgical team. SUBJECTIVE: The patient reports right breast and pelvic area pain, rating at 8/10, but otherwise left side is with improved swelling and pain. Dressings are intact. She denies any chest pain, nausea, vomiting, fever, or chills. PHYSICAL EXAMINATION: VITAL SIGNS: Temperature 98.2, pulse is 78, respirations 17, blood pressure 127/86, pulse ox is 98% on room air. GENERAL: No acute distress. HEENT: Normocephalic and atraumatic. NECK: Supple. LUNGS: Clear to auscultation. CARDIOVASCULAR: Regular rate and rhythm. GI: Soft and nontender. NEUROLOGIC: Alert, awake, and oriented x3. MUSCULOSKELETAL: Moves all extremities. SKIN: Bilateral breast, under breast infection, belly button and around the pelvic area. Dressing is intact. PSYCH: Calm. LABORATORY DATA: Urine and blood cultures are negative so far. No labs today. IMPRESSION: 1. Postop abdominoplasty and breast augmentation infection. Blood and urine cultures are negative so far. Wound culture was sent by her water pollution specialist, awaiting on results. We will continue on cefepime and vancomycin per ID. Pain management as needed and wound care daily per Dr. Vidal's instructions. 2. Hypertension, stable on atenolol. We will hold if systolic blood pressure is less than 120. 3. Seizure disorders. We will continue on Depakote and gabapentin. 4. Thyroid disorder. TSH level is 0.064. We will decrease Synthroid to 125 mcg daily and advised to follow up with her PCP for repeat blood work in 4 weeks. 5. Deep vein thrombosis prophylaxis. SCDs for now. PLAN: We will repeat labs in a.m. Further recommendations per ID. At this time, no surgical intervention is recommended per Surgical team. Dictated by JESS Keyes Beckie Capellan MD MY/MODL /[id number]
--- NOTE | 2020-05-04 19:45 | NUR ---
BEDSIDE SHIFT REPORT RECEIVED FROM DAY RN. PT IS ALERT AND ORIENTED X3. RESPIRATIONS ARE EVEN AND UNLABORED.DRESSING TO BREAST DRY AND INTACT. ABDOMINAL DRESSING DRY AND INTACT. REWRAPED WITH KERLIX SO DRESSING STAY ON. PT TOLERATING CARDIAC DIET WELL. PT VOIDING WITHOUT DIFFICULTLY IN BATHROOM.NS INFUSING AT 125 ML/HR VIA RT AC- SITE HEALTHY. CALL LIGHT WITHIN REACH. BED LOCKED AND IN LOW POSITION.NO VANCO TROCH DONE. LAB ORDERED PER PROTOCOL FOR AM.
[2020-05-04] MEDS: GABAPENTIN 100 MG CAP PO SCH (21:53)
[2020-05-04] MEDS: PANTOPRAZOLE SOD 40 MG TABEC PO SCH (21:54)
[2020-05-04] MEDS: DIVALPROEX SODIUM 125 MG TABDR...ER PO SCH (21:56)
[2020-05-05] VITALS (8 sets, daily range): BP systolic 101–129; BP diastolic 68–81
[2020-05-05] MEDS ORDERED: SODIUM CHLORIDE 0.9% 250ML 250 ML ONE (02:24)
[2020-05-05] MEDS: ONDANSETRON HCL INJ 2MG/ML 2ML 2 MG/ML VIAL IV PRN ×5 (03:35→22:22)
[2020-05-05] MEDS: MORPHINE SULFATE INJ 4 MG/ML INJ 1ML IV PRN ×5 (03:42→22:23)
[2020-05-05] MEDS: ACETAMINOPHEN 325 MG TAB PO PRN ×2 (04:47→15:20)
[2020-05-05] MEDS: CEFEPIME 2 GM/NS 0.9% 100 ML 100 ML IV SCH ×2 (05:50→17:42)
[2020-05-05] MEDS: LEVOTHYROXINE SODIUM 125 MCG TAB PO SCH (05:50)
--- NOTE | 2020-05-05 06:24 | NUR ---
DRESSING REINFORCED WITH ABD PADS. INCISION ON ABD REDENED. NO DRAINAGE NOTED. PT VOIDING PER BATHROO.M.20 G SL PATENT WITH HEALTHY SITE.WILL ASK IF PT ABLE TO WEAR ABD BINDER.
--- NOTE | 2020-05-05 07:00 | NUR ---
ASSUMED CARE. PATIENT RESTING IN BED. AAOX3. ACYANOTIC. NO DISTRESS NOTED. CALL LIGHT IN REACH. SIDE RAILS UP X2. BED LOW AND SHIRLENE.D
[2020-05-05 07:03] LABS: BASOPHILS % 1.2 % (0.0-1.0); EOSINOPHILS # (AUTO) 0.2 (0.0-0.4); EOSINOPHILS % 6.1 % (0.0-6.0); HEMATOCRIT 28.1 % (34.2-44.1); HEMOGLOBIN 8.6 g/dL (12.0-16.0); LYMPHOCYTES # (AUTO) 1.1 (1.0-3.2); LYMPHOCYTES % 30.6 % (18.0-39.1); MEAN CORPUSCULAR HEMOGLOBIN 28.4 pg (28-32); MEAN CORPUSCULAR HGB CONC 30.6 g/dL (31-35); MEAN CORPUSCULAR VOLUME 92.7 fL (81-99); MONOCYTES # (AUTO) 0.4 (0.2-0.8); NEUTROPHILS # (AUTO) 1.8 (2.1-6.9); NEUTROPHILS % 50.8 % (38.7-80.0); PLATELET COUNT 208 x10e3/uL (140-360); RED BLOOD COUNT 3.03 x10e6/uL (3.6-5.1); RED CELL DISTRIBUTION WIDTH 13.6 % (11.7-14.4)
[2020-05-05 07:22] LABS: ANION GAP 10.2 mmol/L (8-16); BLOOD UREA NITROGEN < 5 mg/dL (7-26); CALCIUM 7.7 mg/dL (8.4-10.2); CARBON DIOXIDE 27 mmol/L (22-29); CHLORIDE 108 mmol/L (98-107); EST GLOMERULAR FILTRATION RATE > 60 ML/MIN (60-); GLUCOSE 95 mg/dL (74-118); POTASSIUM 4.2 mmol/L (3.5-5.1); SODIUM 141 mmol/L (136-145)
[2020-05-05 07:23] LABS: BUN/CREATININE RATIO 8 (6-25)
[2020-05-05] MEDS: ASPIRIN 325 MG TAB PO SCH (08:02)
[2020-05-05] MEDS: DIVALPROEX SODIUM 250 MG TAB...DR PO SCH (08:02)
[2020-05-05] MEDS: VANCOMYCIN 1GM/NS 250 ML 250 ML IV SCH ×2 (08:02→20:58)
[2020-05-05] MEDS: ATENOLOL 50 MG TAB PO SCH ×2 (08:03→17:43)
[2020-05-05] MEDS: MUPIROCIN 2% OINT 22 GM TUBE TOP SCH (10:00)
--- NOTE | 2020-05-05 19:55 | NUR ---
BEDSIDE SHIFT REPORT RECEIVED FROM DAY RN. PT IS ALERT AND ORIENTED X3. RESPIRATIONS ARE REGULAR AND UNLABORED. BREAST INCISION AND ABDOMINAL INCISION REDDENED. NO DRAINAGE NOTED. WOUND CULTURE PENDING FROM ADMISSION.PT VOIDING WITHOUT DIFFICULTY IN BATHROOM. SL IN RT AC SLIGHT SWOLLEN. WILL RESTART IV. CALL LIGHT WITHIN REACH. bED LOCKED ND IN LOW POSITION.
--- NOTE | 2020-05-05 21:57 | NUR ---
IV D/C WITH CATHETER INTACT. PRESSURE DRESSING TO AREA. NEW IV 22 G STARTED IN RT AC. SITE HEALTHY AND PATENT. PT TOLERATED PROCEDURE WELL.
--- NOTE | 2020-05-05 22:13 | Progress Note ---
DATE: 05/05/2020 AGE: A 50-year-old female. CONSULTANTS: 1. Dr. Franklin, ID. 2. Dr. Vidal, Surgical team. SUBJECTIVE: The patient reports improving swelling and pain. Dressings are intact. She remains afebrile. No chest pain, nausea, or vomiting. PHYSICAL EXAMINATION: VITAL SIGNS: Temperature 98.2, pulse is 74, respirations 18, blood pressure 127/78, pulse ox is 100% on room air. GENERAL: No acute distress. HEENT: Normocephalic, atraumatic. NECK: Supple. LUNGS: Clear to auscultation. CARDIOVASCULAR: Regular rate and rhythm. GI: Soft and nontender. NEUROLOGIC: Alert, awake, and oriented x3. MUSCULOSKELETAL: Moves all extremities. SKIN: Multiple postop surgical site infections. Dressing is intact. PSYCH: Calm. LABORATORY DATA: WBC 3.46, hemoglobin 8.6, hematocrit 28.1. Sodium 141, potassium 4.2, BUN less than 5, creatinine 0.60. Estimated GFR is greater than 60. Calcium is 7.7. TSH is 0.064. Vanc trough is 11.6. Blood and urine cultures negative. IMPRESSION AND PLAN: 1. Postop abdominoplasty and breast augmentation site infection. Blood and urine cultures are negative so far. Wound culture is pending per wound care doctor. We will continue with cefepime and vancomycin per ID. Pain management and wound care daily. Dr. Vidal has been consulted. No surgical intervention at this time. 2. Hypertension. Continue atenolol. 3. Seizure disorders. Continue with Depakote and gabapentin. 4. Hypothyroidism. TSH is 0.064. Synthroid decreased to 125 mcg daily and advised to follow up with PCP in 4 weeks for repeat blood work. 5. Deep vein thrombosis prophylaxis. SCDs. Plan is to continue IV antibiotics and wound care. We will await on wound culture results to decide on antibiotics. Dictated by JESS Keyes Beckie Capellan MD MY/MODL /[id number]
[2020-05-05] MEDS: GABAPENTIN 100 MG CAP PO SCH (22:18)
[2020-05-05] MEDS: PANTOPRAZOLE SOD 40 MG TABEC PO SCH (22:18)
[2020-05-05] MEDS ORDERED: DIVALPROEX SODIUM 125 MG TABDR...ER PO ONE (23:13)
[2020-05-05] MEDS ORDERED: DIVALPROEX SODIUM 250 MG TAB...DR PO ONE (23:14)
[2020-05-05] MEDS: DIVALPROEX SODIUM 125 MG TABDR...ER PO SCH (23:16)
[2020-05-06 00:34] VITALS: BP 108/77
[2020-05-06] MEDS: ACETAMINOPHEN 325 MG TAB PO PRN (04:37)
[2020-05-06 05:06] VITALS: BP 121/85
[2020-05-06] MEDS: CEFEPIME 2 GM/NS 0.9% 100 ML 100 ML IV SCH ×2 (06:09→16:54)
[2020-05-06] MEDS: LEVOTHYROXINE SODIUM 125 MCG TAB PO SCH (06:09)
[2020-05-06] MEDS: ONDANSETRON HCL INJ 2MG/ML 2ML 2 MG/ML VIAL IV PRN ×3 (06:38→16:30)
[2020-05-06] MEDS: MORPHINE SULFATE INJ 4 MG/ML INJ 1ML IV PRN ×3 (06:48→16:40)
[2020-05-06 08:11] VITALS: BP 128/87
[2020-05-06] MEDS: ATENOLOL 50 MG TAB PO SCH ×2 (09:35→16:54)
[2020-05-06] MEDS: DIVALPROEX SODIUM 250 MG TAB...DR PO SCH (09:35)
[2020-05-06] MEDS: MUPIROCIN 2% OINT 22 GM TUBE TOP SCH (09:35)
[2020-05-06] MEDS: VANCOMYCIN 1GM/NS 250 ML 250 ML IV SCH (09:35)
[2020-05-06] MEDS: ASPIRIN 325 MG TAB PO SCH (09:35)
[2020-05-06 12:13] VITALS: BP 125/89
[2020-05-06 16:27] VITALS: BP 125/85
[2020-05-06] MEDS ORDERED: DOXYCYCLINE HY100 MG PO (16:39)
[2020-05-06] MEDS ORDERED: CIPRO500 MG PO (16:39)
--- NOTE | 2020-05-06 17:43 | Progress Note ---
DATE: 05/06/2020 SUBJECTIVE: Clinically, the patient has been doing better. Abdominal wound erythema has improved. There is minimal discharge. OBJECTIVE: VITAL SIGNS: Temperature 97.6, pulse 68, respiratory rate 18, and blood pressure 125/89. HEENT: Normocephalic and atraumatic. Extraocular movements not assessed. NECK: Supple. LUNGS: Fair entry bilaterally. Clear to auscultation. HEART: Sounds S1 and S2. No murmur or gallop. ABDOMEN: Soft, nontender, and normoactive bowel sounds. SKIN: Evaluation of this skin reveals surgical wound sites over the breast with lesser erythema. No discharge. Abdominal plasty site shows no active discharge. LABORATORY DATA: WBC count 3.4, hemoglobin 8.6, and platelets 208. BUN of 5 and creatinine 0.6. Cultures are wound cultures that were done are all negative. ASSESSMENT: Status post abdominoplasty with surgical wound infection. Bilateral breast surgery with wound infection. RECOMMENDATIONS: The patient was placed on antibiotic regimen of vancomycin and Maxipime. Has had some improvement in the appearance of the wounds. We will tire changer aircraft antibiotic treatment to doxycycline and ciprofloxacin with followup at [facility] in the next 3-4 days. Wound care is ongoing. Tomer Franklin MD SR/GARY /[id number]
[2020-05-06] MEDS ORDERED: MORPHINE SULFATE INJ 4 MG/ML INJ 1ML IV PRN (19:30)
--- NOTE | 2020-05-06 19:30 | NUR ---
Patient transported to private vehicle. Patient AAOx4. Denies any pain or discomfort at this time. All belongings sent with patient.
--- NOTE | 2020-05-08 01:01 | Discharge Summary ---
PCP: Dr. Randa Sanford. FINAL DISCHARGE DIAGNOSES: 1. Postop abdominoplasty and breast augmentation site infection. 2. Hypertension. 3. Seizure disorder. 4. Hypothyroidism. CONSULTANTS: 1. Dr. Franklin, infectious Disease. 2. Dr. Vidal, surgical seen. PROCEDURES: None. HISTORY: Per HPI. HOSPITAL COURSE: This is a 50-year-old female, who presented with postop abdominoplasty and breast augmentation site of infection. Wound culture was taken at the [facility] and was started on IV antibiotics. Infectious Disease and surgeon consulted and evaluated the patient. Blood cultures were negative. Urine cultures were also negative. CT abdomen and pelvis showed postoperative changes involving the inferior right breast and anterior abdominal wall, may reflect cellulitis. There is subcutaneous fluid in the deep subcutaneous throughout the anterior abdominal wall, particularly on the left, however, no loculated fluid collection was noted. She was continued on vancomycin and cefepime and monitored. Dressing changed daily per Surgical team recommendations. Since there is no loculated fluid, no surgical intervention recommended at this time. She remained afebrile, swelling and pain improved. Wound culture was negative, so ID recommends discharge on Cipro and doxycycline and follow up in 3 to 4 days at the [facility] for wound care. PHYSICAL EXAMINATION: VITAL SIGNS: Temperature 97.5, pulse is 80, respirations 18, blood pressure 125/85, pulse ox is 95% on room air. GENERAL: No acute distress. HEENT: Normocephalic and atraumatic. NECK: Supple. LUNGS: Clear to auscultation. CARDIOVASCULAR: Regular rate and rhythm. GI: Soft and nontender. NEUROLOGIC: Alert, awake, and oriented x3. MUSCULOSKELETAL: Moves all extremities. SKIN: With multiple open post surgical sites, dressing intact. PSYCH: Calm. CONDITION AT DISCHARGE: Improved and stable. DISCHARGE MEDICATIONS: Resume home medications and Cipro and doxycycline antibiotics given as well as Tylenol No. 3 called in for pain. FOLLOWUP: Follow up with PCP and Wound Care in 3 to 4 days. The patient advised to follow up with PCP regarding TSH value and will have repeat blood work. TIME SPENT: Total discharge time is 32 minutes. Dictated by JESS Keyes MD ITZEL Obregon/GARY Chowdhury: 05/07/2020 21:08:12 /[id number] cc: Randa Sanford MD
== END 2020-05-06 20:31 | disposition home or self-care (01) | DRG 920 ==
LOC: ER 18:08 → ERHOLD 18:15 → MED/SURG 20:27
PROVIDERS: ADMIT Internal Medicine; ATTEND Internal Medicine
DX: T81.32XA Disruption of internal operation (surgical) wound, not elsewhere classified, initial encounter (principal); T81.43XA Infection following a procedure, organ and space surgical site, initial encounter; Z20.828 Contact with and (suspected) exposure to other viral communicable diseases; E03.9 Hypothyroidism, unspecified; G40.909 Epilepsy, unspecified, not intractable, without status epilepticus; I10 Essential (primary) hypertension; Z98.84 Bariatric surgery status
CPT/HCPCS: 36415; 74177; 80048; 80053; 80202; 81001; 83605; 84443; 85025; 87040; 87086; 99284; J0692; J2270; J2405; J3370; J7030; J7050; Q9967; U0002

== ENCOUNTER → 2020-05-02 | Outpatient (CLI) | payer OTHER ==
[~2020-05-02] MED LIST: ASPIRIN325 MG PO; ATENOLOL50 MG PO; DEPAKOTE ER250 MG PO; DICYCLOMINE HCL10 MG PO; DIVALPROEX SOD250 M1 PO; EUTHYROX150 MCG PO; GABAPENTIN100 MG PO; OMEPRAZOLE40 MG PO; VALSARTAN40 MG PO
== END ==
LOC: WCC 16:34
PROVIDERS: ATTEND Family Medicine Adult Medicine
DX: T81.89XA Other complications of procedures, not elsewhere classified, initial encounter (principal); T81.42XA Infection following a procedure, deep incisional surgical site, initial encounter; T81.32XA Disruption of internal operation (surgical) wound, not elsewhere classified, initial encounter; Y83.8 Other surgical procedures as the cause of abnormal reaction of the patient, or of later complication, without mention of misadventure at the time of the procedure; L03.311 Cellulitis of abdominal wall; I10 Essential (primary) hypertension
CPT/HCPCS: 87071; 87075; 87205

== ENCOUNTER → 2020-05-09 | Outpatient (CLI) | payer OTHER ==
[~2020-05-09] MED LIST changes: +ASPIRIN325 MG PO; +ATENOLOL50 MG PO; +CIPRO500 MG PO; +DEPAKOTE ER250 MG PO; +DIVALPROEX SOD250 M1 PO; +DOXYCYCLINE HY100 MG PO; +EUTHYROX150 MCG PO; +GABAPENTIN100 MG PO; +VALSARTAN40 MG PO
== END ==
LOC: WCC 14:54
PROVIDERS: ATTEND Family Medicine Adult Medicine
DX: T81.32XA Disruption of internal operation (surgical) wound, not elsewhere classified, initial encounter (principal); T81.42XA Infection following a procedure, deep incisional surgical site, initial encounter; T81.89XA Other complications of procedures, not elsewhere classified, initial encounter; Y83.8 Other surgical procedures as the cause of abnormal reaction of the patient, or of later complication, without mention of misadventure at the time of the procedure; L03.311 Cellulitis of abdominal wall; I10 Essential (primary) hypertension; E03.8 Other specified hypothyroidism

== ENCOUNTER → 2020-05-20 | Outpatient (CLI) | payer OTHER ==
[~2020-05-20] MED LIST changes: +MUPIROCIN 2% OINT 22 GM TUBE ONE
== END ==
LOC: WCC 15:28
PROVIDERS: ATTEND Internal Medicine Infectious Disease
DX: T81.32XA Disruption of internal operation (surgical) wound, not elsewhere classified, initial encounter (principal); T81.89XA Other complications of procedures, not elsewhere classified, initial encounter; T81.42XA Infection following a procedure, deep incisional surgical site, initial encounter; Y83.8 Other surgical procedures as the cause of abnormal reaction of the patient, or of later complication, without mention of misadventure at the time of the procedure; L03.311 Cellulitis of abdominal wall; I10 Essential (primary) hypertension; G40.89 Other seizures; E03.8 Other specified hypothyroidism

== ENCOUNTER → 2020-05-23 | Outpatient (CLI) | payer OTHER ==
[~2020-05-23] MED LIST changes: +LIDOCAINE VISC 2% SOLN 15 ML UDC ONE
== END ==
LOC: WCC 13:31
PROVIDERS: ATTEND Family Medicine Adult Medicine
DX: T81.32XA Disruption of internal operation (surgical) wound, not elsewhere classified, initial encounter (principal); T81.89XA Other complications of procedures, not elsewhere classified, initial encounter; T81.42XA Infection following a procedure, deep incisional surgical site, initial encounter; Y83.8 Other surgical procedures as the cause of abnormal reaction of the patient, or of later complication, without mention of misadventure at the time of the procedure; L03.311 Cellulitis of abdominal wall; I10 Essential (primary) hypertension; E03.8 Other specified hypothyroidism; G40.89 Other seizures

== ENCOUNTER → 2020-05-30 | Outpatient (CLI) | payer OTHER ==
[~2020-05-30] MED LIST changes: -LIDOCAINE VISC 2% SOLN 15 ML UDC ONE; -MUPIROCIN 2% OINT 22 GM TUBE ONE
== END ==
LOC: WCC 12:54
PROVIDERS: ATTEND Family Medicine Adult Medicine
DX: T81.32XA Disruption of internal operation (surgical) wound, not elsewhere classified, initial encounter (principal); Y83.8 Other surgical procedures as the cause of abnormal reaction of the patient, or of later complication, without mention of misadventure at the time of the procedure; T81.89XA Other complications of procedures, not elsewhere classified, initial encounter; I10 Essential (primary) hypertension; E03.8 Other specified hypothyroidism; G40.89 Other seizures

== ENCOUNTER → 2020-06-06 | Outpatient (CLI) | payer OTHER | LOC: WCC 15:19 | PROVIDERS: ATTEND Family Medicine Adult Medicine | DX: T81.32XA Disruption of internal operation (surgical) wound, not elsewhere classified, initial encounter (principal); T81.89XA Other complications of procedures, not elsewhere classified, initial encounter; Y83.8 Other surgical procedures as the cause of abnormal reaction of the patient, or of later complication, without mention of misadventure at the time of the procedure; I10 Essential (primary) hypertension; E03.8 Other specified hypothyroidism; G40.89 Other seizures ==

== ENCOUNTER → 2020-06-18 | Outpatient (CLI) | payer OTHER | LOC: WCC 11:09 | PROVIDERS: ATTEND Family Medicine Adult Medicine | DX: T81.32XA Disruption of internal operation (surgical) wound, not elsewhere classified, initial encounter (principal); Y83.8 Other surgical procedures as the cause of abnormal reaction of the patient, or of later complication, without mention of misadventure at the time of the procedure; I10 Essential (primary) hypertension; G40.89 Other seizures; E03.8 Other specified hypothyroidism ==

== ENCOUNTER → 2020-06-27 | Outpatient (CLI) | payer OTHER ==
[~2020-06-27] MED LIST changes: +LIDOCAINE/PRILOCAINE 2.5-2.5% KIT ONE; +MUPIROCIN 2% OINT 22 GM TUBE ONE
== END ==
LOC: WCC 14:10
PROVIDERS: ATTEND Family Medicine Adult Medicine
DX: T81.32XA Disruption of internal operation (surgical) wound, not elsewhere classified, initial encounter (principal); Y83.8 Other surgical procedures as the cause of abnormal reaction of the patient, or of later complication, without mention of misadventure at the time of the procedure; I10 Essential (primary) hypertension; E03.8 Other specified hypothyroidism; G40.89 Other seizures

== ENCOUNTER → 2020-07-09 | Outpatient (CLI) | payer OTHER ==
[~2020-07-09] MED LIST changes: -LIDOCAINE/PRILOCAINE 2.5-2.5% KIT ONE; -MUPIROCIN 2% OINT 22 GM TUBE ONE
== END ==
LOC: WCC 13:50
PROVIDERS: ATTEND Family Medicine Adult Medicine
DX: T81.32XA Disruption of internal operation (surgical) wound, not elsewhere classified, initial encounter (principal); Y83.8 Other surgical procedures as the cause of abnormal reaction of the patient, or of later complication, without mention of misadventure at the time of the procedure; I10 Essential (primary) hypertension; E03.8 Other specified hypothyroidism; G40.89 Other seizures

== ENCOUNTER → 2020-07-30 | Outpatient (CLI) | payer OTHER | LOC: WCC 14:08 | PROVIDERS: ATTEND Family Medicine Adult Medicine | DX: T81.32XA Disruption of internal operation (surgical) wound, not elsewhere classified, initial encounter (principal); Y83.8 Other surgical procedures as the cause of abnormal reaction of the patient, or of later complication, without mention of misadventure at the time of the procedure; I10 Essential (primary) hypertension; G40.89 Other seizures; E03.8 Other specified hypothyroidism ==

== ENCOUNTER → 2020-08-13 | Outpatient (CLI) | payer OTHER | LOC: WCC 14:17 | PROVIDERS: ATTEND Family Medicine Adult Medicine | DX: T81.32XA Disruption of internal operation (surgical) wound, not elsewhere classified, initial encounter (principal); Y83.8 Other surgical procedures as the cause of abnormal reaction of the patient, or of later complication, without mention of misadventure at the time of the procedure; I10 Essential (primary) hypertension; E03.8 Other specified hypothyroidism; G40.89 Other seizures ==